=== PATIENT | female | born 1995 | race Caucasian/White ===

== ENCOUNTER 2019-06-04 09:00 | Emergency (ER) | payer MEDICAID ==
[2019-06-04 09:09] VITALS: BP 125/62
--- NOTE | 2019-06-04 11:23 | XRAY Report ---
Reason: pain back Procedure Date: 06/04/2019 Accession Number: [id number] / [id number] Procedure: XR - Lumbar Spine Complete CPT Code: Final Report FULL RESULT: EXAM: LUMBOSACRAL SPINE RADIOGRAPHY EXAM DATE: 06/04/2019 11:10 AM. CLINICAL HISTORY: Pain back. COMPARISONS: None. TECHNIQUE: 5 views. FINDINGS: Alignment: Normal. No spondylolisthesis or scoliosis. Bones: Last complete disk space designated L5-S1. No fractures or bone lesions. Disks: Mild disk height loss at L5-S1. Otherwise preserved. No significant degenerative changes. Facets: No significant degenerative changes. Sacroiliac Joints: Unremarkable. Soft Tissues: Paraspinous soft tissues are unremarkable. IMPRESSION: 1. No acute osseous abnormality. 2. Mild lower lumbar degeneration. RADIA
--- NOTE | 2019-06-04 12:35 | ED Physician Documentation ---
PD HPI BACK PAIN - Stated complaint Stated Complaint: BACK PX - Chief complaint Chief Complaint: Back Pain - History obtained from History obtained from: Patient - History of Present Illness Timing - onset: Chronic Timing - details: Gradual onset Location: Mid Quality: Pain Associated symptoms: No: Fever, Weakness, Numbness, Incontinent of urine Worsened by: Other (Working all week) Recently seen: Not recently seen - Additional information Additional information: This is a 24-year-old woman who is 8 months presents with complaints of severe back pain that she has had "her whole life". She was told it hurt because she was overweight so she lost 90 pounds and is still having the pain. She says after working the week she is "broken all weekend" with astronomical pain that is been worse over the past month. She points right to the thoracolumbar junction as the source of the pain. Denies pain radiating down her legs but felt like her left knee was "caving in" today. 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 She also states that she exercises. She cannot take ibuprofen because of the adverse reaction. She has not had any dysuria or urinary incontinence. She denies and denies history of diabetes. She does occasionally get abdominal pain. Review of Systems Constitutional: denies: Fever GI: reports: Abdominal Pain : denies: Dysuria, Incontinent, Now EGA Musculoskeletal: reports: Back pain. 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: Ovarian cysts Psych: Bipolar disorder, Post traumatic stress disorder Musculoskeletal: Chronic back pain Other Past Medical History: Bipolar type 2 - Past Surgical History Past Surgical History: No - Present Medications Home Medications: Ambulatory Orders Medication Instructions Recorded Confirmed No Known Home Medications 06/04/19 06/04/19 - Allergies Allergies/Adverse Reactions: Allergies Allergy/AdvReac Type Severity Reaction Status Date / Time ondansetron Allergy Hives Verified 06/04/19 09:10 antidepressants Allergy Unknown Uncoded 06/04/19 09:10 - Social History Does the pt smoke?: Yes Smoking Status: Current every day smoker Does the pt drink ETOH?: No Does the pt have substance abuse?: No Substance Use and Type: Marijuana - Immunizations Immunizations are current?: Yes PD ED PE NORMAL - Vitals Vital signs reviewed: Yes - General General: Alert and oriented X 3, No acute distress, Well developed/nourished, Other (Pleasant 24-year-old in no acute distress.) - HEENT HEENT: Atraumatic, PERRL - Cardiac Cardiac: RRR - Respiratory Respiratory: No respiratory distress - Abdomen Abdomen: Normal bowel sounds, Soft - Back Back: No CVA TTP, Other (Tenderness at L1 and the surrounding paraspinal muscles.) - Derm Derm: Normal color, Warm and dry, No rash - Extremities Extremities: No deformity, Normal ROM s pain - Neuro Neuro: Alert and oriented X 3, 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 There is a negative seated straight leg raise.) - Psych Psych: Normal mood, Normal affect Results - Vitals Vitals: Vital Signs - 24 hr 06/04/19 09:06 Temperature 37 C Heart Rate 77 Respiratory 18 Rate Blood Pressure 125/62 O2 Saturation 100 Oxygen O2 Source Room air - Rads (name of study) lumbar spine Radiology: See rad report (neg acute) PD MEDICAL DECISION MAKING - ED course Complexity details: reviewed results, d/w patient ED course: Patient declined an injection of Toradol. The imaging results were discussed with her. We also discussed that I do think this pain is musculoskeletal in origin and have recommended that she take naproxen twice a day. She is provided stretching exercises which she should do on a nightly basis after finishing work. She has an appointment for follow-up with a new primary care provider in June so she is encouraged to keep that appointment. Physical therapy may be beneficial. Also massage therapy would probably be helpful. Departure - Departure Disposition: 01 Home, Self Care Clinical Impression: Back pain Qualifiers: Back pain location: back pain in unspecified location Chronicity: unspecified Back pain laterality: midline Qualified Code(s): M54.89 - Other dorsalgia Condition: Good Instructions: ED Back Care Tips, ED Exercises Lumbar Muscles, ED Sprain Strain Lumbar Follow-Up: [facility] [Provider Group] Comments: Do the back stretches every night especially after you get home from work. Take naproxen twice a day if needed for pain. Ice the back and consider having a massage with massage therapist. Keep the appointment in June with a new primary care provider to explore other options to help treat your back pain if it persists.
== END 2019-06-04 12:48 | disposition home or self-care (01) ==
LOC: ED 09:00
DX: M54.5 Low back pain (principal); M54.6 Pain in thoracic spine; G89.29 Other chronic pain; F17.200 Nicotine dependence, unspecified, uncomplicated
CPT/HCPCS: 72110; 99283; 99284

== ENCOUNTER 2020-03-27 14:53 | Outpatient (CLI) | payer MEDICAID | END 2020-03-27 23:59 | disposition home or self-care (01) | LOC: LAB.R 14:53 | PROVIDERS: ATTEND Family Medicine | DX: J02.8 Acute pharyngitis due to other specified organisms (principal) | CPT/HCPCS: 87070; 87077 ==

== ENCOUNTER 2020-03-30 11:50 | Outpatient (CLI) | payer MEDICAID | END 2020-03-30 23:59 | disposition home or self-care (01) | LOC: LAB.R 11:50 | PROVIDERS: ATTEND Physician Assistant Medical | DX: J02.8 Acute pharyngitis due to other specified organisms (principal); Z20.828 Contact with and (suspected) exposure to other viral communicable diseases | CPT/HCPCS: 87275; 87276 ==

== ENCOUNTER 2020-06-15 16:30 | Outpatient (CLI) | payer MEDICAID | END 2020-06-15 23:59 | disposition home or self-care (01) | LOC: LAB.R 16:30 | PROVIDERS: ATTEND Nurse Practitioner | DX: J06.9 Acute upper respiratory infection, unspecified (principal); Z20.822 Contact with and (suspected) exposure to COVID-19 | CPT/HCPCS: 87070; 87275; 87276 ==

== ENCOUNTER 2020-06-15 17:48 | Emergency (ER) | payer MEDICAID ==
[2020-06-15] MEDS ORDERED: KETOROLAC 30 MG/ML VIAL IVP STA (17:55)
[2020-06-15] MEDS ORDERED: SODIUM CHLORIDE 0.9% 1,000 ML IV STA (17:55)
[2020-06-15] MEDS ORDERED: METOCLOPRAMIDE 10 MG/2 ML VIAL IVP STA (17:56)
--- NOTE | 2020-06-15 17:57 | ED Physician Documentation ---
History of Present Illness - Stated complaint Stated Complaint: C+VACCINE REACTION - History obtained from History obtained from: Patient - Additonal information Additional information: She had a second dose of Moderna coronavirus vaccine last night around 6 PM. She woke up this morning with headache, body aches, fever, nausea development. She denies significant runny nose, sore throat, or cough. No urinary complaints or possibility of . She went to an urgent care and was reportedly swabbed for strep and flu and coronavirus but was referred here for further evaluation and treatment. 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 Psych: Bipolar disorder, Post traumatic stress disorder Musculoskeletal: Chronic back pain - Past Surgical History Past Surgical History: No - Present Medications Home Medications: Ambulatory Orders Medication Instructions Recorded Confirmed Metoclopramide [Reglan] 10 mg PO Q6H PRN #10 tab 06/15/20 Mirtazapine [Remeron] 1 tab PO DAILY 06/15/20 06/15/20 busPIRone [Buspar] 15 mg PO HS 06/15/20 06/15/20 cloNIDine [Catapres] 1 tab PO DAILY 06/15/20 06/15/20 - Allergies Allergies/Adverse Reactions: Allergies Allergy/AdvReac Type Severity Reaction Status Date / Time ibuprofen Allergy Headache Verified 06/15/20 18:26 ondansetron Allergy Hives Verified 06/15/20 18:26 antidepressants Allergy Unknown Uncoded 06/15/20 18:26 - Social History Does the pt smoke?: Yes Smoking Status: Current every day smoker Does the pt drink ETOH?: No Does the pt have substance abuse?: No - Immunizations Immunizations are current?: Yes PD ED PE NORMAL - Vitals Vital signs reviewed: Yes - General General: Alert and oriented X 3, No acute distress - HEENT HEENT: PERRL, EOMI - Neck Neck: Supple, no meningeal sign, No bony TTP - Cardiac Cardiac: RRR, No murmur - Respiratory Respiratory: No respiratory distress, Clear bilaterally - Abdomen Abdomen: Non tender - Derm Derm: No rash - Neuro Neuro: Alert and oriented X 3, Normal speech Results - Vitals Vitals: Vital Signs - 24 hr 06/15/20 06/15/20 17:56 19:05 Temperature 37.1 C Heart Rate 106 H 85 Respiratory 20 16 Rate Blood Pressure 129/88 H 116/51 L O2 Saturation 98 100 Oxygen O2 Source Room air - Labs Labs: Laboratory Tests 06/15/20 06/15/20 18:31 18:31 WBC 15.1 H RBC 4.75 Hgb 14.6 Hct 44.4 MCV 93.5 MCH 30.7 MCHC 32.9 RDW 12.4 Plt Count 410 MPV 9.7 Neut # (Auto) 13.2 H Lymph # (Auto) 0.7 L [place] # (Auto) 1.1 H Eos # (Auto) 0.0 Baso # (Auto) 0.0 Absolute Nucleated RBC 0.00 Nucleated RBC % 0.0 Sodium 138 Potassium 4.0 Chloride 100 L Carbon Dioxide 27 Anion Gap 11.0 BUN 10 Creatinine 0.8 Estimated GFR (MDRD) 86 L Glucose 116 H Calcium 9.5 PD MEDICAL DECISION MAKING - ED course ED course: 25 yo F with a typical coronavirus vaccine reacogenicity. She was hydrated with IV fluids, given Toradol and Reglan noting Zofran allergy. The timing is completely typical for the vaccine reaction. Her white count is elevated but there is nothing in the history or physical to suggest a bacterial infection. She was feeling much better and her tachycardia had resolved after the above interventions. Departure - Departure Disposition: 01 Home, Self Care Clinical Impression: Myalgia Vaccine reaction Qualifiers: Encounter type: initial encounter Qualified Code(s): T50.Z95A - Adverse effect of other vaccines and biological substances, initial encounter Vomiting Qualifiers: Vomiting type: unspecified Vomiting Intractability: non-intractable Nausea presence: with nausea Qualified Code(s): R11.2 - Nausea with vomiting, unspecified Condition: Good Record reviewed to determine appropriate education?: Yes Instructions: ED Nausea Vomiting Prescriptions: Metoclopramide [Reglan] 10 mg PO Q6H PRN #10 tab PRN Reason: nausea or headache Comments: Rturn if not better over the next 24 hours or so, anytime if worsening. Tylenol as needed for aches and pains, per package instructions, [id number]. Forms: Activity restrictions Discharge Date/Time: 06/15/20 19:05
[2020-06-15 18:39] LABS: BASOPHILS % (AUTO) 0.3 %; EOSINOPHILS % (AUTO) 0.1 %; HGB - HEMOGLOBIN 14.6 g/dL (12.0-16.0); LYMPHOCYTES # (AUTO) 0.7 10^3/uL (1.5-3.5); LYMPHOCYTES % (AUTO) 4.8 %; MEAN CORPUSCULAR HEMOGLOBIN 30.7 pg (27.0-31.0); MEAN CORPUSCULAR HGB CONC 32.9 g/dL (32.0-36.0); MEAN CORPUSCULAR VOLUME 93.5 fL (81.0-99.0); MEAN PLATELET VOLUME 9.7 fL (7.9-10.8); MONOCYTES # (AUTO) 1.1 10^3/uL (0.0-1.0); NEUTROPHILS # (AUTO) 13.2 10^3/uL (1.5-6.6); NEUTROPHILS % (AUTO) 87.5 %; PLT - PLATELET COUNT 410 10^3/uL (130-450); RED BLOOD COUNT 4.75 10^6/uL (4.20-5.40); RED CELL DISTRIBUTION WIDTH 12.4 % (12.0-15.0); WHITE BLOOD COUNT 15.1 x10^3/uL (4.8-10.8)
[2020-06-15 18:53] LABS: CALCIUM 9.5 mg/dL (8.5-10.3); CREATININE 0.8 mg/dL (0.4-1.0)
[2020-06-15 19:07] VITALS: BP 116/51
== END 2020-06-15 19:05 | disposition home or self-care (01) ==
LOC: ED 17:48
DX: G44.40 Drug-induced headache, not elsewhere classified, not intractable (principal); M79.10 Myalgia, unspecified site; R50.83 Postvaccination fever; R11.0 Nausea; T50.B95A Adverse effect of other viral vaccines, initial encounter; F17.200 Nicotine dependence, unspecified, uncomplicated; J06.9 Acute upper respiratory infection, unspecified; Z20.822 Contact with and (suspected) exposure to COVID-19
CPT/HCPCS: 36415; 80048; 85025; 87070; 87275; 87276; 87635; 96374; 96375; 99283; 99284; J2765